=== PATIENT | female | born 1990 | race American Indian/Alaskan Native ===

== ENCOUNTER 2017-11-13 21:40 | Emergency (ER) | payer OTHER ==
[2017-11-13 23:15] VITALS: BP 102/65
[2017-11-14 00:11] LABS: HCG Qualitative,Urine Negative (Negative)
[2017-11-14] MEDS ORDERED: MOTRIN PO ONE (00:29)
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
== END 2017-11-14 01:01 | disposition home or self-care (01) ==
LOC: ED 21:40
DX: S16.1XXA Strain of muscle, fascia and tendon at neck level, initial encounter (principal); S70.01XA Contusion of right hip, initial encounter; S70.11XA Contusion of right thigh, initial encounter; V89.2XXA Person injured in unspecified motor-vehicle accident, traffic, initial encounter; Y93.89 Activity, other specified; Y92.488 Other paved roadways as the place of occurrence of the external cause; Y99.8 Other external cause status
CPT/HCPCS: 81025; 99283